=== PATIENT | male | born 1955 | race Two or more races ===

== ENCOUNTER 2017-07-15 09:38 | Outpatient (CLI) | payer OTHER | END 2017-07-15 09:49 | disposition home or self-care (01) | LOC: LAB 09:38 | DX: I11.9 Hypertensive heart disease without heart failure (principal); E11.9 Type 2 diabetes mellitus without complications; E78.2 Mixed hyperlipidemia; E03.8 Other specified hypothyroidism ==

== ENCOUNTER 2018-01-31 09:17 | Outpatient (CLI) | payer OTHER | END 2018-01-31 09:27 | disposition home or self-care (01) | LOC: LAB 09:17 | DX: C21.1 Malignant neoplasm of anal canal (principal); E11.9 Type 2 diabetes mellitus without complications; I11.9 Hypertensive heart disease without heart failure; E78.2 Mixed hyperlipidemia; E03.8 Other specified hypothyroidism; E58 Dietary calcium deficiency; E16.8 Other specified disorders of pancreatic internal secretion ==

== ENCOUNTER 2018-08-04 10:33 | Outpatient (CLI) | payer OTHER | END 2018-08-04 10:37 | disposition home or self-care (01) | LOC: LAB 10:33 | DX: Z00.00 Encounter for general adult medical examination without abnormal findings (principal) ==

== ENCOUNTER 2018-09-29 09:43 | Outpatient (CLI) | payer OTHER | END 2018-09-29 09:56 | disposition home or self-care (01) | LOC: LAB 09:43 | DX: E03.8 Other specified hypothyroidism (principal) ==

== ENCOUNTER 2018-10-13 09:41 | Outpatient (CLI) | payer OTHER | END 2018-10-13 09:55 | disposition home or self-care (01) | LOC: SONOGRAMA 09:41 → MAMO-SONO 09:45 → SONOGRAMA 09:55 | DX: E03.8 Other specified hypothyroidism (principal) ==

== ENCOUNTER 2019-01-30 08:55 | Outpatient (CLI) | payer OTHER | END 2019-01-30 09:08 | disposition home or self-care (01) | LOC: LAB 08:55 | DX: D50.8 Other iron deficiency anemias (principal); E03.8 Other specified hypothyroidism; E78.2 Mixed hyperlipidemia; E11.9 Type 2 diabetes mellitus without complications; E56.8 Deficiency of other vitamins; N39.0 Urinary tract infection, site not specified; Z12.11 Encounter for screening for malignant neoplasm of colon; E55.9 Vitamin D deficiency, unspecified; N19 Unspecified kidney failure; R80.8 Other proteinuria; C18.0 Malignant neoplasm of cecum; K92.1 Melena; R94.6 Abnormal results of thyroid function studies; Z13.29 Encounter for screening for other suspected endocrine disorder ==

== ENCOUNTER → 2019-02-22 15:54 | Outpatient (CLI) | payer OTHER | END | disposition home or self-care (01) | LOC: LAB 15:54 | DX: D50.8 Other iron deficiency anemias (principal); E03.8 Other specified hypothyroidism; E78.2 Mixed hyperlipidemia; I11.9 Hypertensive heart disease without heart failure; E56.8 Deficiency of other vitamins; N39.0 Urinary tract infection, site not specified; Z12.11 Encounter for screening for malignant neoplasm of colon; E55.9 Vitamin D deficiency, unspecified; N19 Unspecified kidney failure; E11.9 Type 2 diabetes mellitus without complications; R80.8 Other proteinuria; C18.0 Malignant neoplasm of cecum; K92.1 Melena ==

== ENCOUNTER 2019-08-01 09:15 | Outpatient (CLI) | payer OTHER | END 2019-08-01 09:22 | disposition home or self-care (01) | LOC: LAB 09:15 | DX: D50.8 Other iron deficiency anemias (principal); E03.8 Other specified hypothyroidism; E78.2 Mixed hyperlipidemia; I11.9 Hypertensive heart disease without heart failure; E56.8 Deficiency of other vitamins; N39.0 Urinary tract infection, site not specified; Z12.11 Encounter for screening for malignant neoplasm of colon; E55.9 Vitamin D deficiency, unspecified; N19 Unspecified kidney failure; E11.9 Type 2 diabetes mellitus without complications; R80.8 Other proteinuria; C18.0 Malignant neoplasm of cecum; K92.1 Melena ==

== ENCOUNTER 2020-01-25 09:21 | Outpatient (CLI) | payer OTHER | END 2020-01-25 15:00 | disposition home or self-care (01) | LOC: LAB 09:21 | PROVIDERS: ATTEND Internal Medicine Geriatric Medicine | DX: D50.8 Other iron deficiency anemias (principal); E03.8 Other specified hypothyroidism; E78.2 Mixed hyperlipidemia; I11.9 Hypertensive heart disease without heart failure; E56.8 Deficiency of other vitamins; N39.0 Urinary tract infection, site not specified; Z12.11 Encounter for screening for malignant neoplasm of colon; E55.9 Vitamin D deficiency, unspecified; N19 Unspecified kidney failure; E11.9 Type 2 diabetes mellitus without complications; R80.8 Other proteinuria; C18.0 Malignant neoplasm of cecum; K92.1 Melena ==

== ENCOUNTER 2020-03-27 11:02 | Outpatient (CLI) | payer OTHER | END 2020-03-27 15:48 | disposition home or self-care (01) | LOC: OFIC 805 11:02 | PROVIDERS: ATTEND Otolaryngology | DX: H90.41 Sensorineural hearing loss, unilateral, right ear, with unrestricted hearing on the contralateral side (principal); H61.21 Impacted cerumen, right ear ==

== ENCOUNTER 2020-04-17 13:52 | Outpatient (CLI) | payer OTHER | END 2020-04-17 14:00 | disposition home or self-care (01) | LOC: OFIC 805 13:52 | PROVIDERS: ATTEND Otolaryngology | DX: H61.21 Impacted cerumen, right ear (principal); H90.41 Sensorineural hearing loss, unilateral, right ear, with unrestricted hearing on the contralateral side ==

== ENCOUNTER 2020-05-22 14:51 | Outpatient (CLI) | payer OTHER | END 2020-05-22 15:30 | disposition home or self-care (01) | LOC: OFIC 805 14:51 | PROVIDERS: ATTEND Otolaryngology | DX: H91.8X1 Other specified hearing loss, right ear (principal) ==

== ENCOUNTER → 2021-01-14 09:18 | Outpatient (CLI) | payer OTHER | END | disposition home or self-care (01) | LOC: LAB 09:18 | PROVIDERS: ATTEND Internal Medicine Geriatric Medicine | DX: D50.8 Other iron deficiency anemias (principal); E03.8 Other specified hypothyroidism; E78.2 Mixed hyperlipidemia; I11.9 Hypertensive heart disease without heart failure; E56.8 Deficiency of other vitamins; N39.0 Urinary tract infection, site not specified; Z12.11 Encounter for screening for malignant neoplasm of colon; E55.9 Vitamin D deficiency, unspecified; N19 Unspecified kidney failure; E11.9 Type 2 diabetes mellitus without complications; R80.8 Other proteinuria; C18.0 Malignant neoplasm of cecum; K92.1 Melena; R97.20 Elevated prostate specific antigen [PSA] ==

== ENCOUNTER 2022-11-05 09:51 | Outpatient (CLI) | payer OTHER | END 2022-11-05 09:57 | disposition home or self-care (01) | LOC: LAB 09:51 | PROVIDERS: ATTEND Internal Medicine Geriatric Medicine | DX: D50.9 Iron deficiency anemia, unspecified (principal); E03.9 Hypothyroidism, unspecified; E78.2 Mixed hyperlipidemia; I11.9 Hypertensive heart disease without heart failure; E56.8 Deficiency of other vitamins; N39.0 Urinary tract infection, site not specified; Z12.11 Encounter for screening for malignant neoplasm of colon; R19.5 Other fecal abnormalities; E55.9 Vitamin D deficiency, unspecified; N19 Unspecified kidney failure; E11.9 Type 2 diabetes mellitus without complications; R97.20 Elevated prostate specific antigen [PSA] ==

== ENCOUNTER 2023-10-04 13:39 | Outpatient (CLI) | payer OTHER | END 2023-10-04 13:40 | disposition home or self-care (01) | LOC: NUCLEAR 13:39 | PROVIDERS: ATTEND Internal Medicine Geriatric Medicine | DX: M15.0 Primary generalized (osteo)arthritis (principal); M81.0 Age-related osteoporosis without current pathological fracture ==

== ENCOUNTER 2024-09-15 10:28 | Outpatient (CLI) | payer OTHER ==
[2024-09-15 12:00] LABS: HEMATOCRIT 45.1 % (39.0-48.0); HEMOGLOBIN 15.6 g/dL (13-16.00); MEAN CELL VOLUME 91.3 fL (80.0-100.00); MEAN CORPUSCULAR HEMOGLOBIN 31.5 pg (27.00-32.0); MEAN CORPUSCULAR HGB CONC 34.6 g/dl (32.0-36.0); PLATELET COUNT 173 K/uL (150-450); RED BLOOD COUNT 4.95 M/uL (4.00-6.00); RED CELL DISTRIBUTION WIDTH 13.5 % (11.5-14.5)
[2024-09-15 12:05] LABS: ob NEGATIVE (NEGATIVE)
[2024-09-15 12:28] LABS: PH,URINE 7.5 (5.0-8.0); URINE APPEARANCE Clear; URINE BILIRRUBIN Negative (NEGATIVE); URINE BLOOD Negative; URINE COLOR Yellow; URINE GLUCOSE Negative (NEGATIVE); URINE KETONE Negative (NEGATIVE); URINE LEUKOCYTE Negative; URINE NITRATE Negative; URINE PROTEIN Negative (NEGATIVE); URINE UROBILINOGEN 0.2 E.U./dl
[2024-09-15 12:32] LABS: URINE RBC 6.4 uL (0.0-20.8)
[2024-09-15 12:40] LABS: ALBUMIN 3.7 gm/dL (3.4-5.0); BILIRUBIN TOTAL 0.69 mg/dL (0.3-1.2); CALCIUM 9.3 mg/dL (8.5-10.1); CHOL HDL RATIO 3.4 (0-5.0); CREATININE SERUM 0.9 mg/dL (0.70-1.30); GFR 83.42; GLOBULINA 3.5 G/DL (2.4-3.5); POTASSIUM 4.88 mEq/L (3.5-5.1); TOTAL PROTEIN 7.2 gm/dL (6.4-8.2); TSH 1.95 uIU/mL (0.358-3.74)
[2024-09-15 12:59] LABS: URINE BACTERIA 0 uL (0.0-1933); URINE EPITHELIAL CELLS 0.4 uL (0.0-38.8); URINE WBC 0.4 uL (0.0-23.2)
== END 2024-09-15 10:31 | disposition home or self-care (01) ==
LOC: LAB 10:28
PROVIDERS: ATTEND Internal Medicine Geriatric Medicine
DX: D50.9 Iron deficiency anemia, unspecified (principal); E03.9 Hypothyroidism, unspecified; E78.2 Mixed hyperlipidemia; I11.9 Hypertensive heart disease without heart failure; E56.8 Deficiency of other vitamins; N39.0 Urinary tract infection, site not specified; Z12.11 Encounter for screening for malignant neoplasm of colon; R19.5 Other fecal abnormalities; E55.9 Vitamin D deficiency, unspecified; N19 Unspecified kidney failure; E11.9 Type 2 diabetes mellitus without complications; R80.9 Proteinuria, unspecified; C18.9 Malignant neoplasm of colon, unspecified; K92.1 Melena; Z12.5 Encounter for screening for malignant neoplasm of prostate